=== PATIENT | female | born 1985 | race Caucasian/White ===

== ENCOUNTER 2025-01-22 22:00 | Emergency (ER) | payer MEDICAID ==
[~2025-01-22] VITALS: Ht 165.1 cm; Wt 82.0 kg
[2025-01-22 22:02] VITALS: O2SAT 94
[2025-01-22] MEDS: LEVETIRACETAM 1000MG PREMIX 100 ML IV ONE (23:37)
[2025-01-22] MEDS: SODIUM CHLORIDE 0.9% 1,000 ML IV ONE (23:38)
[2025-01-23 00:09] LABS: CLARITY URINE CLOUDY (CLEAR); COLOR URINE YELLOW (YELLOW); GLUCOSE URINE NEGATIVE (NEGATIVE); KETONES URINE NEGATIVE (NEGATIVE); LEUKOCYTE ESTERASE URINE NEGATIVE (NEGATIVE); NITRITE URINE NEGATIVE (NEGATIVE); OCCULT BLOOD URINE TRACE (NEGATIVE); PROTEIN URINE NEGATIVE (NEGATIVE); SPECIFIC GRAVITY URINE 1.009 (1.005-1.030); UROBILINOGEN URINE 0.2 E.U./dL (0.2-1.0)
[2025-01-23 00:25] LABS: BASOPHILS % 0.6 % (0.0-2.0); EOSINOPHILS % 1.7 % (0.0-5.0); HEMOGLOBIN. 12.7 g/dL (12.0-16.0); LYMPHOCYTES % 29.9 % (20.0-50.0); MEAN CORPUSCULAR HEMOGLOBIN 28.9 pg (28.0-32.0); MEAN CORPUSCULAR HGB CONC 33.5 g/dL (31.0-37.0); MEAN CORPUSCULAR VOLUME 86.4 fL (81.0-99.0); MEAN PLATELET VOLUME 9.6 fl (7.4-10.4); MONOCYTES % 5.8 % (2.0-8.0); PLATELET 317 x1000/uL (130-400); RED CELL DISTRIBUTION WIDTH 13.8 % (11.6-14.6)
[2025-01-23 00:29] LABS: *AMPHETAMINES SCREEN URINE NEGATIVE (NEGATIVE); *BARBITURATES SCREEN URINE NEGATIVE (NEGATIVE); *BENZODIAZEPINES SCREEN URINE NEGATIVE (NEGATIVE); *COCAINE SCREEN URINE NEGATIVE (NEGATIVE); METHADONE URINE SCREEN NEGATIVE (NEGATIVE); OPIATES URINE SCREEN NEGATIVE (NEGATIVE); PHENCYCLIDINE URINE SCREEN NEGATIVE (NEGATIVE)
[2025-01-23 00:30] LABS: CANNABINOID URINE SCREEN NEGATIVE (NEGATIVE); ECSTASY MDMA SCREEN URINE NEGATIVE (NEGATIVE)
[2025-01-23 00:31] LABS: CHLORIDE 106 mEq/L (98-107); POTASSIUM 3.3 mEq/L (3.5-5.1); SODIUM 140 mEq/L (136-145)
[2025-01-23 00:32] LABS: CARBON DIOXIDE 26 mEq/L (21-32)
[2025-01-23 00:37] LABS: CREATININE 0.7 mg/dL (0.6-1.0); GLUCOSE 139 mg/dL (70-105); UREA NITROGEN BLOOD 9 mg/dL (9-23)
[2025-01-23 00:38] LABS: ETHANOL BLOOD < 10 mg/dL (<10)
[2025-01-23 00:40] LABS: HCG SCREEN NEGATIVE
[2025-01-23 00:46] LABS: TROPONIN I HIGH SENSITIVITY < 4 ng/L (3.0-34)
[2025-01-23] MEDS ORDERED: POTA-203 MT (01:09)
[2025-01-23] MEDS: POTASSIUM CHLORIDE 20MEQ/PACKET PO SCH (01:09)
[2025-01-23 01:26] LABS: SQUAMOUS EPITHELIAL CELL URINE 1+ /lpf (RARE/1+)
[2025-01-23 01:27] LABS: RBC URINE 0-2 /hpf (0-2); WBC URINE 0-2 /hpf (0-2)
[2025-01-23 01:28] LABS: BACTERIA URINE 2+
[2025-01-23 01:37] VITALS: BP 117/81; PULSE 81; RESP 17; TEMP 36.7; O2SAT 95
== END 2025-01-23 01:56 | disposition home or self-care (01) ==
LOC: ER 22:41
DX: G40.909 Epilepsy, unspecified, not intractable, without status epilepticus (principal); Z79.899 Other long term (current) drug therapy
CPT/HCPCS: 80305; 80048; 81003; 80320; 84703; 85025; 84484; 36415; 71045; 93005; 96365; 99285; J1953; J7030; G0480